=== PATIENT | male | born 1975 | race Caucasian/White ===

== ENCOUNTER → 2019-11-05 10:06 | Outpatient (BNVA) | payer BC, SELFPAY | PROVIDERS: Family Provider Nurse Practitioner; PCP Nurse Practitioner; Visit Provider Nurse Practitioner Family | DX: R05 Cough (principal); R50.9 Fever, unspecified | CPT/HCPCS: 87635 ==

== ENCOUNTER → 2019-12-10 17:00 | Outpatient (BNVA) | payer BC, SELFPAY | PROVIDERS: Family Provider Nurse Practitioner; PCP Nurse Practitioner; Visit Provider Nurse Practitioner Family | DX: R10.9 Unspecified abdominal pain (principal); R50.9 Fever, unspecified | CPT/HCPCS: 81000 ==